=== PATIENT | male | born 1955 | race Caucasian/White ===

== ENCOUNTER 2024-10-07 21:37 | Observation (INO) ==
[2024-10-07 22:00] LABS: Basophils # (auto) 0.06 K/uL (0.00-0.20); Basophils % (auto) 0.4 %; Eosinophils # (auto) 0.06 K/uL (0.00-0.50); Eosinophils % (auto) 0.4 %; Hematocrit (blood only) 43.3 % (42.0-52.0); Hemoglobin 15.7 g/dl (14.0-18.0); Immature Granulocytes # (auto) 0.06 K/uL (0.01-0.20); Immature Granulocytes % (auto) 0.4 %; Lymphocytes # (auto) 0.61 K/uL (1.20-3.40); Lymphocytes % (auto) 4.3 %; Mean Corpuscular Hemoglobin 30.4 pg (25.0-34.0); Mean Corpuscular Hgb Conc 36.3 g/dL (32.0-36.0); Mean Corpuscular Volume 83.9 fL (80.0-100.0); Mean Platelet Volume 10.9 fL (9.4-12.4); Monocytes # (auto) 0.98 K/uL (0.11-0.59); Monocytes % (auto) 6.9 %; Neutrophils % (auto) 87.6 %; Platelet Count 283 K/uL (130-400); RDW Coefficient of Variation 12.9 % (11.5-14.5); RDW Standard Deviation 39.3 fL (36.4-46.3); Red Blood Count 5.16 M/uL (4.70-6.10); White Blood Count 14.17 K/ul (4.8-10.8)
--- NOTE | 2024-10-07 22:00 | Emergency Department Note ---
Impression & Plan Weakness, Dizziness, Leukocytosis, Vomiting, Elevated troponin, Heart murmur ED Provider Note NAME: PAPITO LUCERO AGE: 87 SEX: M : 07/16/1937 ARRIVES VIA: Ambulance INFORMANT: [Patient][ems] ED PROVIDER(S): [Bill Chou MD] CHIEF COMPLAINT: Dizziness HISTORY OF PRESENT ILLNESS: The patient is an 87-year-old male who states that he suddenly began to feel dizzy and nauseated and weak prior to arrival. He was mildly short of breath with the dizziness. He had a mild headache. He did begin to vomit. He felt better when he was still laying down. The patient states that his daughter had something similar earlier today. He thinks he may have picked something up from her. There has been no chest pain. He has no abdominal pain. He has not had one- sided weakness. Patient does take a baby aspirin. He has a history of aortic regurg. Of note, the patient had a similar episode recently for which she was in the hospital, he was told he likely had a bout of vertigo. He has no history of previous CVA. PMHx/PSHx/Social Hx: See Below PHYSICAL EXAM: GENERAL: Patient is in no acute distress. Holding a vomit bag with some vomitus in the bottom of the bag. HEENT: No acute trauma, normocephalic atraumatic, mucous membranes moist, no nasal congestion. No nystagmus however, the patient became quite dizzy when looking to the right. NECK: No stridor, no adenopathy, no meningismus, trachea is midline. LUNGS: Clear to auscultation bilaterally, no wheeze, no rhonchi, breath sounds equal. HEART: The patient appears to have a systolic and diastolic murmur, there is a musical nature to the murmur. Regular rate and rhythm. ABDOMEN: Soft, nontender, no peritonitis. EXTREMITIES: No cyanosis, full range of motion of all the joints without pain or difficulty. NEUROLOGIC: Oriented x 3, no acute motor or sensory deficits, no focal weakness. No speech slur, excellent historian. No extremity drift. No cerebellar dysfunction. SKIN: No jaundice, no diaphoresis. DIFFERENTIAL DIAGNOSIS: Intracranial bleeding, stroke or TIA, vertigo, electrolyte imbalance, viral illness, dysrhythmia, among others. EMERGENCY DEPARTMENT PROCEDURES: MEDICAL DECISION MAKING: There is a moderate leukocytosis, this could be consistent with infection or just the stress of his current situation. There was a normal hemoglobin and platelet count. No coagulopathy. Potassium slightly low but not in need of emergent correction. No renal failure. No concerning liver enzyme elevation. The patient appeared to be in a euthyroid state. ECG shows what appears to be a sinus rhythm, there was no acute ST elevation. Cardiac enzyme testing x 1 was slightly elevated. This troponin relation could be secondary to some mismatch or certainly, cardiac injury. Chest x-ray did not show mediastinal widening, pneumonia or pneumothorax. Brain CT showed no acute bleed or mass effect. Patient was given IV Zofran and IV Phenergan, a second dose of IV Phenergan was given. Patient does feel improved since being medicated. The patient presents with some dizziness, weakness, he had some slight shortness of breath prior to arrival, he had vomited prior to arrival. The patient has no focal neurologic findings by exam. He recently had a somewhat similar presentation and, at that time, was diagnosed with vertigo. Given the persistent symptoms, given the troponin elevation, given his cardiac history, I do think hospitalization would be warranted. He requires further cardiac monitoring, symptom control. 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 The on-call hospitalist was consulted. Prior/Outside records/notes reviewed: Today's EMS notes describing his presentation and transport to this hospital. ECG per my interpretation: Indication was dizziness and weakness. The ECG shows what appears to be a normal sinus rhythm with a rate of 81. LVH is present. There is an incomplete right bundle branch block. There is no ST elevation, no dysrhythmia. No PVCs. The QTc is 443. Continuous Cardiac Monitoring per my interpretation: An order was placed for continuous cardiac monitoring. The monitor shows a rate of 81 with normal sinus rhythm. Imaging/x-ray results per my interpretation: Chest x-ray does not show mediastinal widening, pneumonia or pneumothorax. Chronic Medical/Social conditions affecting care: Advanced age. Care/Management discussed with: Case management, the on-call hospitalist. Level of care consideration(s): After review of the information above and other included data: --I believe the patient requires escalation of care to admission DISPOSITION: Admission Past Med/Surg History Problem List (Updated 10/07/24 @ 22:52 by Bill Chou MD) Heart murmur (Acute) Elevated troponin (Acute) Vomiting (Acute) Leukocytosis (Acute) Dizziness (Acute) Weakness (Acute) Medical History Heart murmur Vertigo Social History Smoking Status: Never smoker Feels Safe at Home: Yes Results & Data (ED) Vital Signs Vital Signs - 24 hr 10/07/24 21:41 10/07/24 21:41 10/07/24 21:42 Temperature 36.9 C 36.7 C Temperature Source Temporal Artery Scan Oral Pulse Rate 84 84 Pulse Rate [Finger] 84 Pulse Rhythm Regular Regular Pulse Rhythm [Finger] Regular Pulse Strength Normal Pulse Strength [Finger] Normal Respiratory Rate 18 18 18 Respiratory Effort / Characteristics Non-Labored Spontaneous Non-Labored Spontaneous Respiratory Depth Normal Normal Blood Pressure 160/103 H Blood Pressure [Right Arm] 160/103 H Blood Pressure Mean 122 Blood Pressure Mean [Right Arm] 122 Blood Pressure Position [Right Arm] Sitting Pulse Oximetry 98 98 97 Oxygen Delivery Method Room Air Room Air Room Air Sepsis Recent Fever Within 48 Hours No Sepsis New/Unexplained Change in Mental Status N/A Sepsis Action Taken by Nursing No Action Required 10/07/24 21:43 Temperature Temperature Source Pulse Rate 81 Pulse Rate [Finger] Pulse Rhythm Pulse Rhythm [Finger] Pulse Strength Pulse Strength [Finger] Respiratory Rate Respiratory Effort / Characteristics Respiratory Depth Blood Pressure Blood Pressure [Right Arm] Blood Pressure Mean Blood Pressure Mean [Right Arm] Blood Pressure Position [Right Arm] Pulse Oximetry Oxygen Delivery Method Sepsis Recent Fever Within 48 Hours Sepsis New/Unexplained Change in Mental Status Sepsis Action Taken by Residential Medications Current Medication List: was personally reviewed by me Laboratory Data Attestation: I reviewed the patient's lab results. 10/07/24 21:44 10/07/24 21:44 Lab Results 10/07/24 Range/Units 21:44 WBC 14.17 H (4.8-10.8) K/ul RBC 5.16 (4.70-6.10) M/uL Hgb 15.7 (14.0-18.0) g/dl Hct 43.3 (42.0-52.0) % MCV 83.9 (80.0-100.0) fL MCH 30.4 (25.0-34.0) pg MCHC 36.3 H (32.0-36.0) g/dL RDW Std Deviation 39.3 (36.4-46.3) fL RDW Coeff of [place] 12.9 (11.5-14.5) % Plt Count 283 (130-400) K/uL MPV 10.9 (9.4-12.4) fL Immature Gran % (Auto) 0.4 % Neut % (Auto) 87.6 % Lymph % (Auto) 4.3 % [place] % (Auto) 6.9 % Eos % (Auto) 0.4 % Baso % (Auto) 0.4 % Neut # (Auto) 12.40 H (1.40-6.50) K/uL Lymph # (Auto) 0.61 L (1.20-3.40) K/uL [place] # (Auto) 0.98 H (0.11-0.59) K/uL Eos # (Auto) 0.06 (0.00-0.50) K/uL Baso # (Auto) 0.06 (0.00-0.20) K/uL Immature Gran # (Auto) 0.06 (0.01-0.20) K/uL PT 11.5 (9.0-12.0) Seconds INR 1.1 (0.9-1.1) APTT 25 (21-31) Seconds PTT Ratio 0.9 Sodium 139 (136-145) mmol/L Potassium 3.4 L (3.5-5.1) mmol/L Chloride 103 (98-107) mmol/L Carbon Dioxide 28 (21-32) mmol/L Anion Gap 8 (3-11) BUN 26 H (6-23) mg/dl Creatinine 1.35 (0.6-1.4) mg/dl Est Cr Clr Drug Dosing 40.7 ml/min eGFR 50.19 BUN/Creatinine Ratio 19.3 (10-20) Glucose 151 H (70-99(Fasting)) mg/dl Calcium 9.9 (8.6-10.3) mg/dl Magnesium 1.7 (1.7-2.4) mg/dl Total Bilirubin 1.2 H (0.2-1.0) mg/dl AST 15 (13-39) U/L ALT 14 (7-52) U/L Alkaline Phosphatase 62 (34-104) U/L Troponin I High Sens 34.4 H (0-20) pg/ml Total Protein 7.4 (6.0-8.3) gm/dl Albumin 4.7 (3.4-5.0) gm/dl Globulin 2.7 (2.5-4.0) gm/dl Albumin/Globulin Ratio 1.7 (0.9-2) TSH 4.310 (0.300-4.500) uIu/ml Administered Medications Discontinued Medications Promethazine HCl (Phenergan) 6.25 mg in 50.25 mls @ 201 mls/hr IV NOW STA Stop: 10/07/24 22:10 Last Infusion: 10/07/24 22:39 Dose: Infused Documented By: JUAN JOSE Admin: 10/07/24 22:06 Dose: 201 mls/hr Documented By: MINDI Ondansetron HCl (Ondansetron Inj 2 Mg/Ml 2 Ml Vial) 4 mg IV NOW STA Stop: 10/07/24 21:57 Last Admin: 10/07/24 22:06 Dose: 4 mg Documented By: MINDI Imaging Data Radiologist's Impression: Head CT 10/07/24 21:56 Exam(s): CT HEAD Without Contrast EXAM: CT Head Without Intravenous Contrast CLINICAL HISTORY: Reason for exam: headache. TECHNIQUE: Axial computed tomography images of the head/brain without intravenous contrast. CTDI is 35.79 mGy and DLP is 625.8 mGy-cm. Automated exposure control was utilized for the study. A dose lowering technique was utilized adhering to the principles of ALARA. COMPARISON: No relevant prior studies available. FINDINGS: Brain: No hemorrhage, extra-axial fluid collection, mass effect, or edema. Ventricles: Unremarkable. Bones/joints: Unremarkable. No fracture. Soft tissues: Unremarkable. Sinuses: No acute sinusitis. Mastoid air cells: Unremarkable as visualized. IMPRESSION: 1. No acute intracranial abnormality. Electronically signed by: Vince Singh MD 10/07/24 22:30 PM Discharge Plan Visit Data Chief Complaint: Dizziness Stated Complaint: DIZZINESS, NAUSEA ED Provider: Bill Chou Discharge Problem: Weakness, Dizziness, Leukocytosis, Vomiting, Elevated troponin, Heart murmur Patient Disposition: Admitted As Inpatient Condition: Fair Forms Stand Alone Forms: [facility] Referrals Referrals: PCP,NO [Primary Care Provider] - Discharge Problem: Leukocytosis Qualifiers: Leukocytosis type: unspecified Qualified Code(s): D72.829 - Elevated white blood cell count, unspecified Vomiting Qualifiers: Vomiting type: unspecified Nausea presence: with nausea Qualified Code(s): R 11.2 - Nausea with vomiting, unspecified
[2024-10-07] MEDS: PROMETHAZINE 6.25 MG/50.25 ML BAG IV STA ×2 (22:06→22:50)
[2024-10-07] MEDS: ONDANSETRON INJ 2 MG/ML 2 ML VIAL IV STA (22:06)
[2024-10-07 22:16] LABS: Albumin Globulin Ratio 1.7 (0.9-2); Albumin Level 4.7 gm/dl (3.4-5.0); BUN Creatinine Ratio 19.3 (10-20); Bilirubin,Total 1.2 mg/dl (0.2-1.0); Calcium 9.9 mg/dl (8.6-10.3); Creatinine Clr Calc Pharmacy 40.7 ml/min; Globulin 2.7 gm/dl (2.5-4.0); Magnesium 1.7 mg/dl (1.7-2.4); Potassium 3.4 mmol/L (3.5-5.1); Total Protein 7.4 gm/dl (6.0-8.3)
[2024-10-07 22:22] LABS: Troponin I High Sensitivity 34.4 pg/ml (0-20)
[2024-10-07 22:31] LABS: Thyroid Stimulating Hormone 4.31 uIu/ml (0.300-4.500)
--- NOTE | 2024-10-07 22:31 | CT Scan Report ---
Exam(s): CT HEAD Without Contrast EXAM: CT Head Without Intravenous Contrast CLINICAL HISTORY: Reason for exam: headache. TECHNIQUE: Axial computed tomography images of the head/brain without intravenous contrast. CTDI is 35.79 mGy and DLP is 625.8 mGy-cm. Automated exposure control was utilized for the study. A dose lowering technique was utilized adhering to the principles of ALARA. COMPARISON: No relevant prior studies available. FINDINGS: Brain: No hemorrhage, extra-axial fluid collection, mass effect, or edema. Ventricles: Unremarkable. Bones/joints: Unremarkable. No fracture. Soft tissues: Unremarkable. Sinuses: No acute sinusitis. Mastoid air cells: Unremarkable as visualized. IMPRESSION: 1. No acute intracranial abnormality. Electronically signed by: Vince Singh MD 10/07/24 22:30 PM
[2024-10-07 22:41] LABS: INR 1.1 (0.9-1.1); Partial Thromboplastin Ratio 0.9; Partial Thromboplastin Time 25 Seconds (21-31); Prothrombin Time 11.5 Seconds (9.0-12.0)
[2024-10-07] MEDS ORDERED: Patient's ALLERGY Info needs ENTERED STA (22:58)
[2024-10-07] MEDS: POTASSIUM CHLORIDE CRTAB 20 MEQ TABCR PO STA (23:36)
[2024-10-07] MEDS: MAGNESIUM SULFATE / D5W 1 GM/100 ML BAG IV STA (23:36)
--- NOTE | 2024-10-07 23:37 | History & Physical Report ---
Date of Service October 07, 2024 Assessment & Plan (1) SOB (shortness of breath): Plan: Secondary to viral RTI No sepsis for now Dizziness secondary to illness and uncontrolled hypertension Troponin elevation secondary to illness hx aortic regurgitation hyperlipidemia, on statin Rx DM2 on oral medications, unknown baseline control prostate cancer status post surgery Liver cyst, outpatient workup contemplated this week as per patient. OBS Medical telemetry Supportive management for viral RTI Titrate home BP meds Follow troponin, TTE for progression ISS BG goal 1 10-1 40, carb count coverage, check hemoglobin A1c PT OT eval DVT prophylaxis. Lovenox subcu Full code Text document was generated using [employer] voice recognition software. It may contain grammatical or spelling errors. Kindly contact undersigned for clarification of any documentation item in question. History of Present Illness Chief Complaint: Dizziness, SOB Primary Care Provider: PAO Macias History obtained from patient and records. Medical history significant for aortic regurgitation, hypertension, hyperlipidemia, DM2 on oral medications, prostate cancer status post surgery, liver cyst, gout. Patient is a resident of [place], [place] who traveled to [facility] today to watch a local [employer] game. Recent confinement last month Patient noted cough symptoms productive of clear sputum along with flulike symptoms this afternoon. No chest pain, some SOB. Dizziness like feeling imbalanced. Possible sick contacts at home. Overnight stay at hospital close to home last month for dizziness symptoms. SBP 160s upon arrival at the ER. 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 Allergies Allergy/AdvReac Type Severity Reaction Status Date / Time simvastatin [From Zocor] AdvReac Weakness Verified 10/08/24 00:07 Home Medications Medication Instructions Recorded Confirmed Type allopurinol 100 mg tablet 100 mg PO DAILY 10/07/24 10/07/24 History amlodipine 5 mg tablet 5 mg PO HS 10/07/24 10/07/24 History aspirin 81 mg capsule 81 mg PO DAILY 10/07/24 10/07/24 History carvedilol 25 mg tablet 25 mg PO BID 10/07/24 10/07/24 History cetirizine 10 mg tablet 10 mg PO DAILY 10/07/24 10/07/24 History glucosamine HCl 1,500 mg tablet 1,500 mg PO DAILY 10/07/24 10/07/24 History losartan 100 1 tab PO HS 10/07/24 10/07/24 History mg-hydrochlorothiazide 25 mg tablet metformin 500 mg tablet 500 mg PO BID 10/07/24 10/07/24 History rosuvastatin 5 mg tablet (Crestor) 5 mg PO HS 10/07/24 10/07/24 History Past Med/Surg History Problem List (Updated 10/08/24 @ 06:42 by Rajiv Sanz MD) SOB (shortness of breath) Heart murmur (Acute) Elevated troponin (Acute) Vomiting (Acute) Leukocytosis (Acute) Dizziness (Acute) Weakness (Acute) Medical History Heart murmur Vertigo Social History Smoking Status: Never smoker Hx Alcohol Use: Yes Alcohol type: beer Hx Substance Use: No Preferred Language: Ethiopian Communication Ability: Effective Room Attendants Required: No Beliefs That Will Affect Care: None Current Living Situation: Spouse Feels Safe at Home: Yes Assistive Devices: None Review of Systems Review of Systems: As per HPI, all other systems reviewed and negative Physical Exam Physical Exam: GENERAL: Slightly uncomfortable, pleasant, no respiratory distress SKIN: Normal color, warm HEENT: Partial alopecia, bespectacled, pink palpebral conjunctivae, no ptosis, dry buccal mucosa NECK : Supple, no tenderness CHEST : Decreased breath sounds, no tenderness HEART : RRR, systolic murmur ABDOMEN: Some distention, nontender EXTREMITIES : No LE swelling/tenderness, no other conspicuous deformities noted NEUROLOGIC : Coherent, no facial asymmetry, no other gross focality Results & Data Results & Data Vital Signs (Past 12 Hours) Vital Signs Temp Pulse Pulse Resp BP BP Pulse Ox 10/07/24 21:43 81 10/07/24 21:42 84 18 97 10/07/24 21:41 36.7 C 84 18 160/103 H 98 10/07/24 21:41 36.9 C 84 18 160/103 H 98 O2 Del Method 10/07/24 21:43 10/07/24 21:42 Room Air 10/07/24 21:41 Room Air 10/07/24 21:41 Room Air Laboratory Results Laboratory Results WBC 14.17 K/ul (4.8-10.8) H 10/07/24 21:44 RBC 5.16 M/uL (4.70-6.10) 10/07/24 21:44 Hgb 15.7 g/dl (14.0-18.0) 10/07/24 21:44 Hct 43.3 % (42.0-52.0) 10/07/24 21:44 MCV 83.9 fL (80.0-100.0) 10/07/24 21:44 MCH 30.4 pg (25.0-34.0) 10/07/24 21:44 MCHC 36.3 g/dL (32.0-36.0) H 10/07/24 21:44 RDW Std Deviation 39.3 fL (36.4-46.3) 10/07/24 21:44 RDW Coeff of [place] 12.9 % (11.5-14.5) 10/07/24 21:44 Plt Count 283 K/uL (130-400) 10/07/24 21:44 MPV 10.9 fL (9.4-12.4) 10/07/24 21:44 Immature Gran % (Auto) 0.4 % 10/07/24 21:44 Neut % (Auto) 87.6 % 10/07/24 21:44 Lymph % (Auto) 4.3 % 10/07/24 21:44 [place] % (Auto) 6.9 % 10/07/24 21:44 Eos % (Auto) 0.4 % 10/07/24 21:44 Baso % (Auto) 0.4 % 10/07/24 21:44 Neut # (Auto) 12.40 K/uL (1.40-6.50) H 10/07/24 21:44 Lymph # (Auto) 0.61 K/uL (1.20-3.40) L 10/07/24 21:44 [place] # (Auto) 0.98 K/uL (0.11-0.59) H 10/07/24 21:44 Eos # (Auto) 0.06 K/uL (0.00-0.50) 10/07/24 21:44 Baso # (Auto) 0.06 K/uL (0.00-0.20) 10/07/24 21:44 Immature Gran # (Auto) 0.06 K/uL (0.01-0.20) 10/07/24 21:44 PT 11.5 Seconds (9.0-12.0) 10/07/24 21:44 INR 1.1 (0.9-1.1) 10/07/24 21:44 APTT 25 Seconds (21-31) 10/07/24 21:44 PTT Ratio 0.9 10/07/24 21:44 Sodium 139 mmol/L (136-145) 10/07/24 21:44 Potassium 3.4 mmol/L (3.5-5.1) L 10/07/24 21:44 Chloride 103 mmol/L (98-107) 10/07/24 21:44 Carbon Dioxide 28 mmol/L (21-32) 10/07/24 21:44 Anion Gap 8 (3-11) 10/07/24 21:44 BUN 26 mg/dl (6-23) H 10/07/24 21:44 Creatinine 1.35 mg/dl (0.6-1.4) 10/07/24 21:44 Est Cr Clr Drug Dosing 40.7 ml/min 10/07/24 21:44 eGFR 50.19 10/07/24 21:44 BUN/Creatinine Ratio 19.3 (10-20) 10/07/24 21:44 Glucose 151 mg/dl (70-99(Fasting)) H 10/07/24 21:44 Calcium 9.9 mg/dl (8.6-10.3) 10/07/24 21:44 Magnesium 1.7 mg/dl (1.7-2.4) 10/07/24 21:44 Total Bilirubin 1.2 mg/dl (0.2-1.0) H 10/07/24 21:44 AST 15 U/L (13-39) 10/07/24 21:44 ALT 14 U/L (7-52) 10/07/24 21:44 Alkaline Phosphatase 62 U/L (34-104) 10/07/24 21:44 Troponin I High Sens 34.4 pg/ml (0-20) H 10/07/24 21:44 Total Protein 7.4 gm/dl (6.0-8.3) 10/07/24 21:44 Albumin 4.7 gm/dl (3.4-5.0) 10/07/24 21:44 Globulin 2.7 gm/dl (2.5-4.0) 10/07/24 21:44 Albumin/Globulin Ratio 1.7 (0.9-2) 10/07/24 21:44 TSH 4.310 uIu/ml (0.300-4.500) 10/07/24 21:[address] 10/07/24 21:56 Exam(s): CT HEAD Without Contrast EXAM: CT Head Without Intravenous Contrast CLINICAL HISTORY: Reason for exam: headache. TECHNIQUE: Axial computed tomography images of the head/brain without intravenous contrast. CTDI is 35.79 mGy and DLP is 625.8 mGy-cm. Automated exposure control was utilized for the study. A dose lowering technique was utilized adhering to the principles of ALARA. COMPARISON: No relevant prior studies available. FINDINGS: Brain: No hemorrhage, extra-axial fluid collection, mass effect, or edema. Ventricles: Unremarkable. Bones/joints: Unremarkable. No fracture. Soft tissues: Unremarkable. Sinuses: No acute sinusitis. Mastoid air cells: Unremarkable as visualized. IMPRESSION: 1. No acute intracranial abnormality. Electronically signed by: Vince Singh MD 10/07/24 22:30 PM Diagnostic Findings EKG as per my interpretation :Rate 80, NSR, LAD, LAFB, incomplete RBBB, LVH, no ischemia
[2024-10-07] MEDS ORDERED: LORazepam 0.5 MG TAB PO PRN (23:41)
[2024-10-07] MEDS ORDERED: traMADol HCL 50 MG TABLET PO PRN (23:41)
--- NOTE | 2024-10-07 23:46 | XRay Report ---
Exam(s): XR CXR 1 VIEW EXAM: XR Chest, 1 View CLINICAL HISTORY: Reason for exam: Chest pain, nonspecific. TECHNIQUE: Frontal view of the chest. COMPARISON: No relevant prior studies available. FINDINGS: Lungs: Atelectasis within the lingula. Pleural space: No pleural effusion. No pneumothorax. Heart: Unremarkable. No cardiomegaly. IMPRESSION: Atelectasis within the lingula. Electronically signed by: Vince Singh MD 10/07/24 23:46 PM
[2024-10-07] MEDS: OPTIRAY 320 125ml IV ONE (23:56)
[2024-10-07] MEDS ORDERED: GLUCOSE 10 TAB/TUBE PO PRN (23:59)
[2024-10-07] MEDS ORDERED: GLUCAGON FOR INJ 1 MG VIAL SQ PRN (23:59)
[2024-10-07] MEDS ORDERED: GLUCOSE 40% GEL 15 GM TUBE PO PRN (23:59)
[2024-10-07] MEDS ORDERED: CARBOHYDRATES FOR HYPOGLYCEMIA PO PRN (23:59)
[2024-10-07] MEDS ORDERED: DEXTROSE 50% 50 ML SYRINGE IV PRN (23:59)
[2024-10-08] MEDS: NSS + 20MEQ KCL 20 MEQ/1,000 ML BAG IV STA (00:22)
[2024-10-08] MEDS: ACETAMINOPHEN 1,000 MG/100 ML VIAL IV STA (00:22)
--- NOTE | 2024-10-08 00:28 | CT Scan Report ---
Exam(s): CTA CHEST IV Amt: 116 ml opti 320 EXAM: CT Angiography Chest With Intravenous Contrast CLINICAL HISTORY: Reason for exam: sob. TECHNIQUE: Axial computed tomographic angiography images of the chest with intravenous contrast. CTDI is 25 mGy and DLP is 827 mGy-cm. Automated exposure control was utilized for the study. A dose lowering technique was utilized adhering to the principles of ALARA. MIP reconstructed images were created and reviewed. COMPARISON: No relevant prior studies available. FINDINGS: Pulmonary arteries: No pulmonary embolism. Aorta: No acute findings. Normal caliber. No dissection. Lungs: Unremarkable. Pleural space: Unremarkable. Heart: Cardiomegaly. Bones/joints: No acute fracture. Soft tissues: Unremarkable. Lymph nodes: Unremarkable. IMPRESSION: 1. No pulmonary embolism. 2. Cardiomegaly. Electronically signed by: Vince Singh MD 10/08/24 00:27 AM
[2024-10-08] MEDS: INSULIN ASPART PER UNIT CHARGE SC SCH (00:31)
[2024-10-08] MEDS ORDERED: SODIUM CHLORIDE 0.65% NA SOLN 45 ML (OCEAN) PRN (00:35)
[2024-10-08 01:37] LABS: Adenovirus PCR Not Detected (NotDetected); Bordetella parapertussis PCR Not Detected (NotDetected); Bordetella pertussis PCR Not Detected (NotDetected); Chlamydia pneumoniae PCR Not Detected (NotDetected); Coronavirus 229E PCR Not Detected (NotDetected); Coronavirus CoV-2 (COVID19)PCR Not Detected (NotDetected); Coronavirus HKU1 PCR Not Detected (NotDetected); Coronavirus NL63 PCR Not Detected (NotDetected); Coronavirus OC43PCR Not Detected (NotDetected); Human Metapneumovirus PCR Not Detected (NotDetected); Influenza A PCR Not Detected (NotDetected); Influenza B PCR Not Detected (NotDetected); Mycoplasma pneumoniae PCR Not Detected (NotDetected); Parainfluenza Virus 1 PCR Not Detected (NotDetected); Parainfluenza Virus 2 PCR Not Detected (NotDetected); Parainfluenza Virus 3 PCR Not Detected (NotDetected); Parainfluenza Virus 4 PCR Not Detected (NotDetected); Respiratory Syncytial VirusPCR Not Detected (NotDetected); Rhinovirus/Enterovirus PCR Not Detected (NotDetected)
--- NOTE | 2024-10-08 02:17 | Magnetic Resonance Report ---
EXAM: MR brain wo con CLINICAL HISTORY: SOB. HEADACHE. DIZZINESS. N V. SYMPTOMS EARLIER THIS EVENING. RESOLVED NOW BUT STILL FEELS VERY WEAK. R/O CVA. ROOM B7. ED IN PATIENT. IMAGES 200 SENT TO [facility] TECHNIQUE: Multisequential and multiplanar images of the brain were submitted for review without contrast. COMPARISON: None. FINDINGS: Generalized parenchymal atrophy is appreciated. Scattered foci of increased T2/FLAIR signal abnormality are identified within the bilateral periventricular and subcortical white matter, and are most commonly associated with chronic small vessel ischemic disease. No focal parenchymal lesions are seen. No intracranial hemorrhage, mass effect, midline shift, extra-axial collection, or hydrocephalus is identified. Ventricles, sulci, and basal cisterns are symmetric and normal in size and configuration. Diffusion-weighted sequences show no evidence of acute ischemic infarction. Midline structures including the pituitary gland, corpus callosum, pineal region, and brainstem are unremarkable. The craniovertebral junction is within normal limits. No calvarial abnormalities are identified. The paranasal sinuses and mastoid air cells are clear. Orbital structures are unremarkable. Appropriate flow voids are present in the visualized intracranial vessels. IMPRESSION: 1. No acute ischemia, space occupying mass, or other acute intracranial pathology is demonstrated. 2. Chronic small vessel ischemic disease. 3. Diffuse cerebral atrophy. Electronically signed by Shiraz Rios 10-08-2024 02:16 AM
[2024-10-08] MEDS: PROMETHAZINE 6.25 MG/50.25 ML BAG IV PRN (05:43)
[2024-10-08 06:10] LABS: Appearance Urine Clear (Clear); Bacteria Urine Automated None Seen (None Seen); Bilirubin Urine Negative (Negative); Blood Urine Negative (Negative); Cast Urine Automated 0-2 /lpf (0-2); Color Urine Yellow; Epithelial Cell Urine Auto 0-2 /hpf (0-2); Glucose Urine UA Negative (Negative); Ketones Urine Negative (Negative); Leukocyte Esterase Urine Negative (Negative); Nitrite Urine Negative (Negative); Protein Urine Trace (Negative); RBC Urine Automated 0-2 /hpf (0-2); Specific Gravity Urine > 1.045 (1.000-1.030); Urobilinogen Urine Negative (Negative); WBC Urine Automated 0-5 /hpf (0-5); pH Urine 5.5 (4.5-7.5)
[2024-10-08 06:58] LABS: Estimated Average Glucose 126 mg/dl
[2024-10-08 07:46] LABS: BUN Creatinine Ratio 26.2 (10-20); Calcium 8.2 mg/dl (8.6-10.3); Creatinine Clr Calc Pharmacy 69.3 ml/min; Potassium 3.3 mmol/L (3.5-5.1)
[2024-10-08 07:57] LABS: Basophils # (auto) 0.05 K/uL (0.00-0.20); Basophils % (auto) 0.5 %; Eosinophils # (auto) 0.02 K/uL (0.00-0.50); Eosinophils % (auto) 0.2 %; Hematocrit (blood only) 36.8 % (42.0-52.0); Hemoglobin 13.1 g/dl (14.0-18.0); Immature Granulocytes # (auto) 0.02 K/uL (0.01-0.20); Immature Granulocytes % (auto) 0.2 %; Lymphocytes # (auto) 0.69 K/uL (1.20-3.40); Lymphocytes % (auto) 6.5 %; Mean Corpuscular Hgb Conc 35.6 g/dL (32.0-36.0); Mean Corpuscular Volume 84.4 fL (80.0-100.0); Mean Platelet Volume 11.5 fL (9.4-12.4); Monocytes % (auto) 7.6 %; Neutrophils # (auto) 9.01 K/uL (1.40-6.50); Platelet Count 240 K/uL (130-400); RDW Coefficient of Variation 13.1 % (11.5-14.5); RDW Standard Deviation 40.6 fL (36.4-46.3); Red Blood Count 4.36 M/uL (4.70-6.10); White Blood Count 10.59 K/ul (4.8-10.8)
[2024-10-08] MEDS ORDERED: Nursing to Pharmacy Communication SCH (08:15)
[2024-10-08] MEDS ORDERED: INFLUENZA VACC TS2024-25(65y+)/PF (IIV3) 0.5mL Syr IM ONE (09:00)
[2024-10-08] MEDS: ASPIRIN 81 MG ECTAB PO SCH (09:20)
[2024-10-08] MEDS: CETIRIZINE HCL 10 MG TABLET PO SCH (09:21)
[2024-10-08] MEDS: LOSARTAN POTASSIUM 50 MG TAB PO SCH (09:22)
[2024-10-08] MEDS: carvediloL 25 MG TAB PO SCH (09:22)
[2024-10-08] MEDS: ENOXAPARIN INJ 40 MG/0.4 ML SYR SQ SCH (09:22)
[2024-10-08] MEDS: allopurinoL 100 MG TAB PO SCH (09:22)
[2024-10-08] MEDS: POTASSIUM CHLORIDE CRTAB 20 MEQ TABCR PO ONE (09:23)
[2024-10-08] MEDS: ACETAMINOPHEN 325 MG TAB PO PRN (13:35)
[2024-10-08 16:19] LABS: Adenovirus F 40/41 PCR Not Detected (NotDetected); Astrovirus PCR Not Detected (NotDetected); Campylobacter PCR Not Detected (NotDetected); Cryptosporidium PCR Not Detected (NotDetected); Cyclospora cayetanensis PCR Not Detected (NotDetected); Entamoeba histolytica PCR Not Detected (NotDetected); Enteroaggregative E.coli(EAEC) Not Detected (NotDetected); Enteropathogenic E.coli (EPEC) Not Detected (NotDetected); Enterotoxigenic E.coli (ETEC) Not Detected (NotDetected); Giardia lamblia PCR Not Detected (NotDetected); Plesiomonas shigelloides PCR Not Detected (NotDetected); Rotavirus A PCR Not Detected (NotDetected); Salmonella PCR Not Detected (NotDetected); Sapovirus PCR Not Detected (NotDetected); Shiga-like Toxin E.coli (STEC) Not Detected (NotDetected); Shigella/Enteroinvasive E.coli Not Detected (NotDetected); Vibrio cholerae PCR Not Detected (NotDetected); Vibrio species PCR Not Detected (NotDetected); Yersinia enterocolitica PCR Not Detected (NotDetected)
--- NOTE | 2024-10-08 16:49 | Hospitalist Progress Note ---
Date of Service October 08, 2024 Assessment & Plan (1) SOB (shortness of breath): Plan: Suspected viral upper respiratory tract infection --Chest CTA:No pulmonary embolism. Cardiomegaly. -- BioFire negative Check procalcitonin Saturating well on room air Conservative management for now Hypokalemia Replete electrolytes as needed Monitor Diarrhea Stool studies positive for norovirus Stool for C. difficile negative IV fluids as needed Conservative management Dizziness Hypertension Likely due to uncontrolled hypertension, dehydration Check resting echo Continue amlodipine, carvedilol Started on losartan Monitor BP Monitor for any arrhythmia Troponin elevation Likely demand ischemia Echo pending Other chronic conditions: H/O Aortic regurgitation Hyperlipidemia, on statin DM II: oral medications, HbA1c 6.0. Utilize insulin while hospitalized. Monitor BGs Prostate cancer S/P surgery Liver cyst, outpatient workup contemplated this week as per patient. DVT Px: Lovenox SQ Code Status Full code Admission and Anticipated Discharge Date Admission Date: October 07, 2024 Subjective Patient is seen and examined at bedside States having headache Also reports having diarrhea Less cough today Heartburn, nausea resolved Denies any chest pain, dyspnea today Saturating well on room air Review of Systems Review of Systems: All systems reviewed & are unremarkable except as noted in Subjective Physical Exam Physical Exam: Physical Exam: Vitals signs as noted above General Appearance:Moderately built and nourished, no apparent distress Head: normocephalic, Atraumatic Eyes: normal inspection, EOMI Neck: supple, Trachea midline Respiratory/Chest: Decreased breath sounds, CTA, No accessory muscle use Cardiovascular: S1, S2,+murmur Abdomen/GI:Soft, distended, non tender, Bowel sounds present Extremities/Musculoskeletal:normal inspection, no edema Neurologic/Psych:AAOX3, grossly no focal neurological deficits Skin: normal color, warm Results & Data Results & Data Vital Signs (Past 12 Hours) Vital Signs Temp Pulse Pulse Resp BP Pulse Ox O2 Del Method 10/08/24 15:55 64 10/08/24 15:00 37.1 C 61 18 132/53 L 96 Room Air 10/08/24 10:32 36.6 C 66 16 154/61 H 96 Room Air 10/08/24 08:07 85 L Nasal Cannula 10/08/24 07:30 64 18 90 10/08/24 07:07 63 10/08/24 07:00 133/53 L O2 Flow Rate 10/08/24 15:55 10/08/24 15:00 10/08/24 10:32 10/08/24 08:07 0 10/08/24 07:30 10/08/24 07:07 10/08/24 07:00 Laboratory Results Short CBC 10/07/24 10/08/24 Range/Units 21:44 06:43 WBC 14.17 H 10.59 (4.8-10.8) K/ul Hgb 15.7 13.1 L (14.0-18.0) g/dl Hct 43.3 36.8 L (42.0-52.0) % Plt Count 283 240 (130-400) K/uL BMP 10/07/24 10/08/24 21:44 06:43 Sodium 139 138 Potassium 3.4 L 3.3 L Chloride 103 106 Carbon Dioxide 28 24 BUN 26 H 28 H Creatinine 1.35 1.07 Glucose 151 H 147 H Calcium 9.9 8.2 L Liver Function 10/07/24 Range/Units 21:44 Total Bilirubin 1.2 H (0.2-1.0) mg/dl AST 15 (13-39) U/L ALT 14 (7-52) U/L Alkaline Phosphatase 62 (34-104) U/L Albumin 4.7 (3.4-5.0) gm/dl Urine 10/08/24 Range/Units 05:39 Urine Color Yellow Urine Appearance Clear (Clear) Urine pH 5.5 (4.5-7.5) Ur Specific [place] > 1.045 H (1.000-1.030) Urine Protein Trace H (Negative) Urine Glucose (UA) Negative (Negative)
[2024-10-08 16:56] LABS: Norovirus GI/GII PCR DETECTED (NotDetected)
[2024-10-08] MEDS: ROSUVASTATIN CALCIUM 5 MG TAB PO SCH (20:47)
[2024-10-08] MEDS: amLODIPine BESYLATE 5 MG TAB PO SCH (20:47)
[2024-10-09 06:46] LABS: Hematocrit (blood only) 34.5 % (42.0-52.0); Hemoglobin 12.2 g/dl (14.0-18.0); Mean Corpuscular Hemoglobin 30.2 pg (25.0-34.0); Mean Corpuscular Hgb Conc 35.4 g/dL (32.0-36.0); Mean Corpuscular Volume 85.4 fL (80.0-100.0); Mean Platelet Volume 10.8 fL (9.4-12.4); Platelet Count 190 K/uL (130-400); RDW Coefficient of Variation 13.1 % (11.5-14.5); RDW Standard Deviation 41.1 fL (36.4-46.3); Red Blood Count 4.04 M/uL (4.70-6.10); White Blood Count 7.66 K/ul (4.8-10.8)
[2024-10-09 07:07] LABS: BUN Creatinine Ratio 15.7 (10-20); Calcium 8.3 mg/dl (8.6-10.3); Creatinine Clr Calc Pharmacy 70.6 ml/min; Magnesium 1.9 mg/dl (1.7-2.4); Potassium 3.7 mmol/L (3.5-5.1)
--- NOTE | 2024-10-09 12:15 | Hospitalist Progress Note ---
Date of Service October 09, 2024 Assessment & Plan (1) SOB (shortness of breath): Plan: Suspected viral upper respiratory tract infection --Chest CTA:No pulmonary embolism. Cardiomegaly. -- BioFire negative Normal procalcitonin Saturating well on room air Conservative management Hypokalemia Replete electrolytes as needed Monitor Diarrhea Stool studies positive for norovirus Stool for C. difficile negative IV fluids as needed Resolved Dizziness Hypertension Likely due to uncontrolled hypertension, dehydration ECHO: Mild concentric LVH. EF 55 to 60%. Grade 1 diastolic dysfunction. Aortic valve sclerosis mild, without significant stenosis. Mild aortic regurgitation. Continue amlodipine, carvedilol, losartan Monitor for any arrhythmia Dizziness resolved Troponin elevation Likely demand ischemia Echo no wall motion abnormality Large hepatic cyst Chronic Patient in the process of getting worked up as outpatient Other chronic conditions: H/O Aortic regurgitation Hyperlipidemia, on statin DM II: oral medications, HbA1c 6.0. Utilize insulin while hospitalized. Monitor BGs Prostate cancer S/P surgery DVT Px: Lovenox SQ Code Status Full code Disposition Home Admission and Anticipated Discharge Date Admission Date: October 07, 2024 Subjective Patient is seen and examined at bedside Patient feels a lot better today No recurrence of diarrhea Headache much improved Has minimal dry cough Still feels tired No other complaints Plan to be discharged home today Review of Systems Review of Systems: All systems reviewed & are unremarkable except as noted in Subjective Physical Exam Physical Exam: Physical Exam: Vitals signs as noted above General Appearance:Moderately built and nourished, no apparent distress Head: normocephalic, Atraumatic Eyes: normal inspection, EOMI Neck: supple, Trachea midline Respiratory/Chest: Decreased breath sounds, CTA, No accessory muscle use Cardiovascular: S1, S2,+murmur Abdomen/GI:Soft, distended, non tender, Bowel sounds present Extremities/Musculoskeletal:normal inspection, no edema Neurologic/Psych:AAOX3, grossly no focal neurological deficits Skin: normal color, warm Results & Data Results & Data Vital Signs (Past 12 Hours) Vital Signs Temp Pulse Pulse Resp BP Pulse Ox O2 Del Method 10/09/24 11:28 36.6 C 66 16 143/58 H 95 Room Air 10/09/24 07:42 36.8 C 60 16 147/59 H 96 Room Air 10/09/24 07:00 63 10/09/24 03:42 36.8 C 68 18 135/50 L 96 Room Air Laboratory Results Short CBC 10/09/24 Range/Units 06:19 WBC 7.66 (4.8-10.8) K/ul Hgb 12.2 L (14.0-18.0) g/dl Hct 34.5 L (42.0-52.0) % Plt Count 190 (130-400) K/uL BMP 10/09/24 06:19 Sodium 138 Potassium 3.7 Chloride 108 H Carbon Dioxide 24 BUN 16 Creatinine 1.02 Glucose 99 Calcium 8.3 L
--- NOTE | 2024-10-09 12:20 | Discharge Summary ---
Date of Service October 09, 2024 Admission HPI Per Admitting Provider History obtained from patient and records. Medical history significant for aortic regurgitation, hypertension, hyperlipidemia, DM2 on oral medications, prostate cancer status post surgery, liver cyst, gout. Patient is a resident of [place], [place] who traveled to [facility] today to watch a local basketball game. Recent confinement last month Patient noted cough symptoms productive of clear sputum along with flulike sym ptoms this afternoon. No chest pain, some SOB. Dizziness like feeling imbalanced. Possible sick contacts at home. Overnight stay at hospital close to home last month for dizziness symptoms. SBP 160s upon arrival at the ER. 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 Admission Exam Per Admitting Provider GENERAL: Slightly uncomfortable, pleasant, no respiratory distress SKIN: Normal color, warm HEENT: Partial alopecia, bespectacled, pink palpebral conjunctivae, no ptosis, dry buccal mucosa NECK : Supple, no tenderness CHEST : Decreased breath sounds, no tenderness HEART : RRR, systolic murmur ABDOMEN: Some distention, nontender EXTREMITIES : No LE swelling/tenderness, no other conspicuous deformities noted NEUROLOGIC : Coherent, no facial asymmetry, no other gross focality Principal Diagnosis Upper respiratory tract infection likely viral etiology Norovirus infection Hypokalemia Hypertension Discharge Data Allergies Allergy/AdvReac Type Severity Reaction Status Date / Time simvastatin [From Zocor] AdvReac Weakness Verified 10/08/24 00:07 Consultations 10/07/24 22:40 ED Decision to Admit Stat Procedures Performed Laboratory Results WBC 7.66 K/ul (4.8-10.8) 10/09/24 06:19 RBC 4.04 M/uL (4.70-6.10) L 10/09/24 06:19 Hgb 12.2 g/dl (14.0-18.0) L 10/09/24 06:19 Hct 34.5 % (42.0-52.0) L 10/09/24 06:19 MCV 85.4 fL (80.0-100.0) 10/09/24 06:19 MCH 30.2 pg (25.0-34.0) 10/09/24 06:19 MCHC 35.4 g/dL (32.0-36.0) 10/09/24 06:19 RDW Std Deviation 41.1 fL (36.4-46.3) 10/09/24 06:19 RDW Coeff of [place] 13.1 % (11.5-14.5) 10/09/24 06:19 Plt Count 190 K/uL (130-400) 10/09/24 06:19 MPV 10.8 fL (9.4-12.4) 10/09/24 06:19 Immature Gran % (Auto) 0.2 % 10/08/24 06:43 Neut % (Auto) 85.0 % 10/08/24 06:43 Lymph % (Auto) 6.5 % 10/08/24 06:43 [place] % (Auto) 7.6 % 10/08/24 06:43 Eos % (Auto) 0.2 % 10/08/24 06:43 Baso % (Auto) 0.5 % 10/08/24 06:43 Neut # (Auto) 9.01 K/uL (1.40-6.50) H 10/08/24 06:43 Lymph # (Auto) 0.69 K/uL (1.20-3.40) L 10/08/24 06:43 [place] # (Auto) 0.80 K/uL (0.11-0.59) H 10/08/24 06:43 Eos # (Auto) 0.02 K/uL (0.00-0.50) 10/08/24 06:43 Baso # (Auto) 0.05 K/uL (0.00-0.20) 10/08/24 06:43 Immature Gran # (Auto) 0.02 K/uL (0.01-0.20) 10/08/24 06:43 PT 11.5 Seconds (9.0-12.0) 10/07/24 21:44 INR 1.1 (0.9-1.1) 10/07/24 21:44 APTT 25 Seconds (21-31) 10/07/24 21:44 PTT Ratio 0.9 10/07/24 21:44 Sodium 138 mmol/L (136-145) 10/09/24 06:19 Potassium 3.7 mmol/L (3.5-5.1) 10/09/24 06:19 Chloride 108 mmol/L (98-107) H 10/09/24 06:19 Carbon Dioxide 24 mmol/L (21-32) 10/09/24 06:19 Anion Gap 6 (3-11) 10/09/24 06:19 BUN 16 mg/dl (6-23) 10/09/24 06:19 Creatinine 1.02 mg/dl (0.6-1.4) 10/09/24 06:19 Est Cr Clr Drug Dosing 70.6 ml/min 10/09/24 06:19 eGFR 78.58 10/09/24 06:19 BUN/Creatinine Ratio 15.7 (10-20) 10/09/24 06:19 Glucose 99 mg/dl (70-99(Fasting)) 10/09/24 06:19 POC Glucose 178 mg/dl (70-99) H 10/09/24 12:00 Estimat Average Glucose 126 mg/dl 10/07/24 21:44 Hemoglobin A1c 6.0 % (4.5-5.6) H 10/07/24 21:44 Calcium 8.3 mg/dl (8.6-10.3) L 10/09/24 06:19 Magnesium 1.9 mg/dl (1.7-2.4) 10/09/24 06:19 Total Bilirubin 1.2 mg/dl (0.2-1.0) H 10/07/24 21:44 AST 15 U/L (13-39) 10/07/24 21:44 ALT 14 U/L (7-52) 10/07/24 21:44 Alkaline Phosphatase 62 U/L (34-104) 10/07/24 21:44 Troponin I High Sens 30.6 pg/ml (0-20) H 10/07/24 23:36 Total Protein 7.4 gm/dl (6.0-8.3) 10/07/24 21:44 Albumin 4.7 gm/dl (3.4-5.0) 10/07/24 21:44 Globulin 2.7 gm/dl (2.5-4.0) 10/07/24 21:44 Albumin/Globulin Ratio 1.7 (0.9-2) 10/07/24 21:44 Procalcitonin 0.45 ng/ml (0-0.5) 10/09/24 06:19 TSH 4.310 uIu/ml (0.300-4.500) 10/07/24 21:44 Urine Color Yellow 10/08/24 05:39 Urine Appearance Clear (Clear) 10/08/24 05:39 Urine pH 5.5 (4.5-7.5) 10/08/24 05:39 Ur Specific [place] > 1.045 (1.000-1.030) H 10/08/24 05:39 Urine Protein Trace (Negative) H 10/08/24 05:39 Urine Glucose (UA) Negative (Negative) 10/08/24 05:39 Urine Ketones Negative (Negative) 10/08/24 05:39 Urine Blood Negative (Negative) 10/08/24 05:39 Urine Nitrite Negative (Negative) 10/08/24 05:39 Urine Bilirubin Negative (Negative) 10/08/24 05:39 Urine Urobilinogen Negative (Negative) 10/08/24 05:39 Ur Leukocyte Esterase Negative (Negative) 10/08/24 05:39 Urine WBC (Auto) 0-5 /hpf (0-5) 10/08/24 05:39 Urine RBC (Auto) 0-2 /hpf (0-2) 10/08/24 05:39 U Hyaline Cast (Auto) 0-2 /lpf (0-2) 10/08/24 05:39 U Epithel Cells (Auto) 0-2 /hpf (0-2) 10/08/24 05:39 Urine Bacteria (Auto) None Seen (None Seen) 10/08/24 05:39 Stl C. cayetanensis PCR Not Detected (NotDetected) 10/08/24 Unknown Stool Rotavirus A PCR Not Detected (NotDetected) 10/08/24 Unknown Stl Adenov F 40/41 PCR Not Detected (NotDetected) 10/08/24 Unknown Stool Astrovirus (PCR) Not Detected (NotDetected) 10/08/24 Unknown Stool Campylobacter PCR Not Detected (NotDetected) 10/08/24 Unknown Stl C. diff Tox B Gene Negative Cdiff Gene (Neg) 10/08/24 Unknown Stool Cryptosporidium PCR Not Detected (NotDetected) 10/08/24 Unknown Stl E.coli Shiga Tox PCR Not Detected (NotDetected) 10/08/24 Unknown Stl Enterotoxigenic E PCR Not Detected (NotDetected) 10/08/24 Unknown Stool EPEC (PCR) Not Detected (NotDetected) 10/08/24 Unknown Stool EAEC (PCR) Not Detected (NotDetected) 10/08/24 Unknown Stl E. histolytica PCR Not Detected (NotDetected) 10/08/24 Unknown Stool Giardia Lamblia PCR Not Detected (NotDetected) 10/08/24 Unknown Stool Salmonella PCR Not Detected (NotDetected) 10/08/24 Unknown Stool Sapovirus (PCR) Not Detected (NotDetected) 10/08/24 Unknown Stl P. shigelloides PCR Not Detected (NotDetected) 10/08/24 Unknown Stl Shigella/EIEC PCR Not Detected (NotDetected) 10/08/[address].enterocolitica PCR Not Detected (NotDetected) 10/08/24 Unknown Stool Vibrio (PCR) Not Detected (NotDetected) 10/08/24 Unknown Stl Vibrio cholerae PCR Not Detected (NotDetected) 10/08/24 Unknown Stl Norovirus GI/GII PCR DETECTED (NotDetected) A* 10/08/24 Unknown Adenovirus (PCR) Not Detected (NotDetected) 10/07/24 21:44 B. pertussis DNA (PCR) Not Detected (NotDetected) 10/07/24 21:44 B.parapertussis DNA PCR Not Detected (NotDetected) 10/07/24 21:44 C. pneumoniae DNA (PCR) Not Detected (NotDetected) 10/07/24 21:44 Coronavirus OC43 (PCR) Not Detected (NotDetected) 10/07/24 21:44 Coronavirus HKU1 (PCR) Not Detected (NotDetected) 10/07/24 21:44 Coronavirus 229E (PCR) Not Detected (NotDetected) 10/07/24 21:44 SARS-CoV-2 (PCR) Not Detected (NotDetected) 10/07/24 21:44 Coronavirus NL63 (PCR) Not Detected (NotDetected) 10/07/24 21:44 Human Metapneumovir PCR Not Detected (NotDetected) 10/07/24 21:44 Influenza Type A (PCR) Not Detected (NotDetected) 10/07/24 21:44 Influenza Type B (PCR) Not Detected (NotDetected) 10/07/24 21:44 M. pneumoniae (PCR) Not Detected (NotDetected) 10/07/24 21:44 Parainfluenza 1 (PCR) Not Detected (NotDetected) 10/07/24 21:44 Parainfluenza 2 (PCR) Not Detected (NotDetected) 10/07/24 21:44 Parainfluenza 3 (PCR) Not Detected (NotDetected) 10/07/24 21:44 Parainfluenza 4 (PCR) Not Detected (NotDetected) 10/07/24 21:44 RSV (PCR) Not Detected (NotDetected) 10/07/24 21:44 Entero/Rhino (PCR) Not Detected (NotDetected) 10/07/24 21:44 Impressions Chest X-Ray 10/07/24 21:46 Exam(s): XR CXR 1 VIEW EXAM: XR Chest, 1 View CLINICAL HISTORY: Reason for exam: Chest pain, nonspecific. TECHNIQUE: Frontal view of the chest. COMPARISON: No relevant prior studies available. FINDINGS: Lungs: Atelectasis within the lingula. Pleural space: No pleural effusion. No pneumothorax. Heart: Unremarkable. No cardiomegaly. IMPRESSION: Atelectasis within the lingula. Electronically signed by: Vince Singh MD 10/07/24 23:[address] 10/07/24 21:56 Exam(s): CT HEAD Without Contrast EXAM: CT Head Without Intravenous Contrast CLINICAL HISTORY: Reason for exam: headache. TECHNIQUE: Axial computed tomography images of the head/brain without intravenous contrast. CTDI is 35.79 mGy and DLP is 625.8 mGy-cm. Automated exposure control was utilized for the study. A dose lowering technique was utilized adhering to the principles of ALARA. COMPARISON: No relevant prior studies available. FINDINGS: Brain: No hemorrhage, extra-axial fluid collection, mass effect, or edema. Ventricles: Unremarkable. Bones/joints: Unremarkable. No fracture. Soft tissues: Unremarkable. Sinuses: No acute sinusitis. Mastoid air cells: Unremarkable as visualized. IMPRESSION: 1. No acute intracranial abnormality. Electronically signed by: Vince Singh MD 10/07/24 22:30 PM Chest CTA 10/07/24 23:39 Exam(s): CTA CHEST IV Amt: 116 ml opti 320 EXAM: CT Angiography Chest With Intravenous Contrast CLINICAL HISTORY: Reason for exam: sob. TECHNIQUE: Axial computed tomographic angiography images of the chest with intravenous contrast. CTDI is 25 mGy and DLP is 827 mGy-cm. Automated exposure control was utilized for the study. A dose lowering technique was utilized adhering to the principles of ALARA. MIP reconstructed images were created and reviewed. COMPARISON: No relevant prior studies available. FINDINGS: Pulmonary arteries: No pulmonary embolism. Aorta: No acute findings. Normal caliber. No dissection. Lungs: Unremarkable. Pleural space: Unremarkable. Heart: Cardiomegaly. Bones/joints: No acute fracture. Soft tissues: Unremarkable. Lymph nodes: Unremarkable. IMPRESSION: 1. No pulmonary embolism. 2. Cardiomegaly. Electronically signed by: Vince Singh MD 10/08/24 00:27 AM Brain MRI 10/08/24 00:16 EXAM: MR brain wo con CLINICAL HISTORY: SOB. HEADACHE. DIZZINESS. N V. SYMPTOMS EARLIER THIS EVENING. RESOLVED NOW BUT STILL FEELS VERY WEAK. R/O CVA. ROOM B7. ED IN PATIENT. IMAGES 200 SENT TO [facility] TECHNIQUE: Multisequential and multiplanar images of the brain were submitted for review without contrast. COMPARISON: None. FINDINGS: Generalized parenchymal atrophy is appreciated. Scattered foci of increased T2/FLAIR signal abnormality are identified within the bilateral periventricular and subcortical white matter, and are most commonly associated with chronic small vessel ischemic disease. No focal parenchymal lesions are seen. No intracranial hemorrhage, mass effect, midline shift, extra-axial collection, or hydrocephalus is identified. Ventricles, sulci, and basal cisterns are symmetric and normal in size and configuration. Diffusion-weighted sequences show no evidence of acute ischemic infarction. Midline structures including the pituitary gland, corpus callosum, pineal region, and brainstem are unremarkable. The craniovertebral junction is within normal limits. No calvarial abnormalities are identified. The paranasal sinuses and mastoid air cells are clear. Orbital structures are unremarkable. Appropriate flow voids are present in the visualized intracranial vessels. IMPRESSION: 1. No acute ischemia, space occupying mass, or other acute intracranial pathology is demonstrated. 2. Chronic small vessel ischemic disease. 3. Diffuse cerebral atrophy. Electronically signed by Shiraz Rios 10-08-2024 02:16 AM Ordered Studies 10/07/24 21:56 CT head/brain wo con Stat 10/07/24 23:39 CT angio chest PE protocol Stat 10/08/24 00:16 MR brain wo con Stat Hospital Course (1) SOB (shortness of breath): Suspected viral upper respiratory tract infection --Chest CTA:No pulmonary embolism. Cardiomegaly. -- BioFire negative Normal procalcitonin Saturating well on room air Conservative management Hypokalemia Replete electrolytes as needed Monitor Diarrhea Stool studies positive for norovirus Stool for C. difficile negative IV fluids as needed Resolved Dizziness Hypertension Likely due to uncontrolled hypertension, dehydration ECHO: Mild concentric LVH. EF 55 to 60%. Grade 1 diastolic dysfunction. Aortic valve sclerosis mild, without significant stenosis. Mild aortic regurgitation. Continue amlodipine, carvedilol, losartan Monitor for any arrhythmia Dizziness resolved Troponin elevation Likely demand ischemia Echo no wall motion abnormality Large hepatic cyst Chronic Patient in the process of getting worked up as outpatient Other chronic conditions: H/O Aortic regurgitation Hyperlipidemia, on statin DM II: oral medications, HbA1c 6.0. Utilize insulin while hospitalized. Monitor BGs Prostate cancer S/P surgery DVT Px: Lovenox SQ Code Status Full code Disposition Home Total Time Total Time Spent Total Time Spent (In Minutes): 41 minutes Discharge Plan Discharge Items Patient Disposition: Home - Self-Care Reason For Visit: SOB, DIZZINESS Discharge Diagnosis: Upper respiratory tract infection likely viral etiology Norovirus infection Hypokalemia Hypertension Condition on Discharge: Fair Activity: Per Instructions section Exercise/Sports: Gradually increase as tolerated Non-emergency contact: Primary Care Provider Call non-emergency contact if: you have any medication questions, your symptoms worsen, your pain is concerning for you and you have a fever Follow-up/Referrals: PCP,NO [Primary Care Provider] - Diet: Carb Consistent or DM2 Addtl Attending Provider Instructions: Follow-up with your primary care physician in 1 week as advised -Monitor your blood pressure regularly. Discuss with your physician for further adjustment of medications as needed - Keep yourself hydrated with increased oral fluid intake given norovirus infection -If your cough is persistent, discussed with your physician for further recommendations Seek immediate medical attention if your symptoms reoccur or worsen Please take all medications as instructed on discharge list below. Please call if you have any questions or problems. You can reach a [facility] hospitalist on duty at [facility] 24 hours a day by calling [phone] Pending Studies at Discharge: No Stand-Alone Forms: My [facility], Smoking Cessation Medications and DC Order Prescriptions: Continued metformin 500 mg Tablet 500 mg PO BID carvedilol 25 mg Tablet 25 mg PO BID Rx Instructions: must administer with a meal/food cetirizine 10 mg Tablet 10 mg PO DAILY amlodipine 5 mg Tablet 5 mg PO HS allopurinol 100 mg Tablet 100 mg PO DAILY losartan-hydrochlorothiazide 100-25 mg Tablet 1 tab PO HS rosuvastatin [Crestor] 5 mg Tablet 5 mg PO HS glucosamine HCl 1,500 mg Tablet 1,500 mg PO DAILY Rx Instructions: administer with a meal aspirin 81 mg Capsule 81 mg PO DAILY Discharge Orders: Discharge Order (Routine); Ordered 10/09/24 Ordered By: Quincy Shea/Other Patient Handouts: Managing Type 2 Diabetes Admission Data Admit Date/Time: 10/07/24 23:38 Attending Provider: Quincy Mackey Admit Provider: Rajiv Sanz Primary Care Provider: PCP,NO Other Providers: Rajiv Sanz
--- NOTE | 2024-10-09 16:28 | Electrocardiogram Report ---
Test Reason : Blood Pressure : */* mmHG Vent. Rate : 81 BPM Atrial Rate : 81 BPM P-R Int : 188 ms QRS Dur : 98 ms QT Int : 382 ms P-R-T Axes : 10 -37 17 degrees QTcB Int : 443 ms Normal sinus rhythm Left anterior fascicular block Incomplete right bundle branch block Moderate voltage criteria for LVH, may be normal variant ( R in aVL , [place] product ) Abnormal ECG No previous ECGs available Confirmed by Sunny Lynch ([id number]) on 10/09/2024 4:28:44 PM Referred By: REFERRED SELF Confirmed By: Sunny Lynch
== END 2024-10-09 17:08 | disposition home or self-care (01) ==
LOC: ED 21:37 → EDBD 21:37 → EDINP 21:37 → SUATTDRO 23:38 → 2N 10-08 00:04